=== PATIENT | female | born 1975 | race African-American/Black ===

== ENCOUNTER 2020-07-20 15:57 | Emergency (ER) | payer BC ==
[~2020-07-20] VITALS: Ht 170.2 cm; Wt 79.5 kg
[2020-07-20 18:38] LABS: BASO % 1 % (0-3); EOS # 0.1 x10^3/uL (0.0-0.7); EOS % 1 % (0-3); HEMATOCRIT 38.7 % (36.0-47.0); HEMOGLOBIN 13.2 g/dL (12.0-15.5); LYMPH # 2.1 x10^3/uL (1.0-4.8); LYMPH % 31 % (24-48); MEAN CORPUSCULAR HEMOGLOBIN 32 pg (25-35); MEAN CORPUSCULAR HGB CONC 34 g/dL (31-37); MEAN CORPUSCULAR VOLUME 93 fL (79-100); MONO # 0.2 x10^3/uL (0.0-1.1); MONO % 3 % (0-9); NEUT # 4.2 x10^3/uL (1.8-7.7); NEUT % 64 % (31-73); PLATELET COUNT 211 x10^3/uL (140-400); RED BLOOD COUNT 4.18 x10^6/uL (3.50-5.40); RED CELL DISTRIBUTION WIDTH 12.8 % (11.5-14.5); WHITE BLOOD COUNT 6.6 x10^3/uL (4.0-11.0)
--- NOTE | 2020-07-20 18:38 | RAD ---
Exam: CT head INDICATION: Episodes of blurry vision bilateral lower extremity weakness TECHNIQUE: Sequential axial images through the head were obtained without the administration of IV contrast. Comparisons: None FINDINGS: There is a 4 mm hyperdense focus within the left frontal lobe periventricular white matter series 2 image 14. There is no midline shift or sulcal effacement. No acute vascular territory infarction is identified. Pink-white distinction is preserved. The ventricular system is within normal limits without compression hydrocephalus. The basal cisterns are well maintained. The visualized portions of the paranasal sinuses and mastoid air cells are well-pneumatized. No acute fractures. IMPRESSION: A 4 mm hyperdense focus in the periventricular white matter of the left frontal lobe. This is nonspecific differential considerations include small calcified lesion versus small hemorrhage. Recommend MRI of the brain with contrast for further evaluation. Exposure: One or more of the following in the visualized dose reduction techniques were utilized for this examination: 1. Automated exposure control 2. Adjustment of the MA and/or KV according to patient size Use of iterative of reconstructive technique FOR INTERNAL CODING PURPOSES Critical result: Findings discussed with MIRIAM GREER at 07/20/2020 6:30 PM. RESULT CODE: (C) Electronically signed by: Sai Lacy MD (07/20/2020 6:32 PM) [facility]
[2020-07-20 19:28] LABS: CALCIUM 9.5 mg/dL (8.5-10.1); CREATININE 0.8 mg/dL (0.6-1.0); GFR 94.7; POTASSIUM 4.2 mmol/L (3.5-5.1)
[2020-07-20 19:35] LABS: ALBUMIN 3.7 g/dL (3.4-5.0); ALBUMIN/GLOBULIN RATIO 1.2 (1.0-1.7); TOTAL BILIRUBIN 0.1 mg/dL (0.2-1.0); TOTAL PROTEIN 6.8 g/dL (6.4-8.2)
[2020-07-20 20:20] VITALS: BP 114/67
--- NOTE | 2020-07-20 20:27 | ED.ADGEN ---
Past Medical History Past Medical History: Seizure Additional Past Medical Histor: back pain Past Surgical History: Other Additional Past Surgical Histo: BREAST REDUCTION Smoking Status: Current Every Day Smoker Alcohol Use: Occasionally General Adult EDM: Chief Complaint: SEIZURE HPI: HPI: Patient is a 44 year old AA female who presents emergency department with concerns of some episodes of blurred vision and having the sensation of her legs giving out. Patient states that on Friday she experienced a short episode of blurred vision and weakness in her legs. She states that the symptoms quickly resolved on their own. She states that she had been normal since Friday and was able to work yesterday but then today she was at the [employer] playing slots when she stood up and realized that her right leg was feeling weak and felt like it was going to give out on her. She noticed that she was also experiencing some blurred vision at that time. Patient states she has been taking opiate pain medications for chronic back pain. She is supposed to see a specialist tomorrow about the problems she has been having with her back and her hips. She denies any saddle anesthesia or loss of bowel/bladder control. She denies any headache, nausea, vomiting, diarrhea, abdominal pain, diaphoresis, chest pain, shortness of breath, body aches, fatigue, fever, or sore throat. She denies any numbness, tingling, weakness, or visual auras. Patient states that when both of these episodes happened she felt like her heart began to race. Patient reports a history of seizures, she takes Keppra and Lamictal, she denies missing any doses of her seizure medications recently. She denies any pain at this time. Review of Systems: Review of Systems: Complete ROS is negative unless otherwise noted in HPI. Allergies: Allergies: Allergies Coded Allergies Type Severity Reaction Last Updated Verified No Known Drug Allergies 07/20/20 No Physical Exam: PE: See Above Constitutional: Well developed, well nourished, no acute distress, non-toxic appearance. [] HENT: Normocephalic, atraumatic, bilateral external ears normal, oropharynx moist, no oral exudates, nose normal. [] Eyes: PERRLA, EOMI, conjunctiva normal, no discharge. [] Neck: Normal range of motion, no tenderness, supple, no stridor. [] Cardiovascular:Heart rate regular rhythm, no murmur [] Lungs & Thorax: Respirations even and unlabored, no retractions, no respiratory distress Abdomen: soft, no tenderness, no masses, no pulsatile masses. [] Skin: Warm, dry, no erythema, no rash. [] Back: No tenderness, no CVA tenderness. [] Extremities: No cyanosis, no clubbing, ROM intact, no edema. [] Neurologic: Alert and oriented X 3, normal motor function, normal sensory function, no focal deficits noted. [] Psychologic: Affect normal, judgement normal, mood normal. [] Current Patient Data: Labs: Laboratory Tests Test 07/20/20 16:59 07/20/20 17:40 07/20/20 19:10 POC Urine HCG, Qualitative Hcg negative (Negative) White Blood Count 6.6 x10^3/uL (4.0-11.0) Red Blood Count 4.18 x10^6/uL (3.50-5.40) Hemoglobin 13.2 g/dL (12.0-15.5) Hematocrit 38.7 % (36.0-47.0) Mean Corpuscular Volume 93 fL (79-100) Mean Corpuscular Hemoglobin 32 pg (25-35) Mean Corpuscular Hemoglobin Concent 34 g/dL (31-37) Red Cell Distribution Width 12.8 % (11.5-14.5) Platelet Count 211 x10^3/uL (140-400) Neutrophils (%) (Auto) 64 % (31-73) Lymphocytes (%) (Auto) 31 % (24-48) Monocytes (%) (Auto) 3 % (0-9) Eosinophils (%) (Auto) 1 % (0-3) Basophils (%) (Auto) 1 % (0-3) Neutrophils # (Auto) 4.2 x10^3/uL (1.8-7.7) Lymphocytes # (Auto) 2.1 x10^3/uL (1.0-4.8) Monocytes # (Auto) 0.2 x10^3/uL (0.0-1.1) Eosinophils # (Auto) 0.1 x10^3/uL (0.0-0.7) Basophils # (Auto) 0.0 x10^3/uL (0.0-0.2) Sodium Level 138 mmol/L (136-145) Potassium Level 4.2 mmol/L (3.5-5.1) Chloride Level 104 mmol/L (98-107) Carbon Dioxide Level 27 mmol/L (21-32) Anion Gap 7 (6-14) Blood Urea Nitrogen 9 mg/dL (7-20) Creatinine 0.8 mg/dL (0.6-1.0) Estimated GFR (Cockcroft-Gault) 94.7 BUN/Creatinine Ratio 11 (6-20) Glucose Level 91 mg/dL (70-99) Calcium Level 9.5 mg/dL (8.5-10.1) Total Bilirubin 0.1 mg/dL (0.2-1.0) L Aspartate Amino Transferase (AST) 18 U/L (15-37) Alanine Aminotransferase (ALT) 23 U/L (14-59) Alkaline Phosphatase 68 U/L (46-116) C-Reactive Protein, Quantitative 0.9 mg/L (0-3.3) Total Protein 6.8 g/dL (6.4-8.2) Albumin 3.7 g/dL (3.4-5.0) Albumin/Globulin Ratio 1.2 (1.0-1.7) Laboratory Tests 07/20/20 17:40 Laboratory Tests 07/20/20 19:10 Vital Signs: Vital Signs Date Time Temp Pulse Resp B/P (MAP) Pulse Ox O2 Delivery O2 Flow Rate FiO2 07/20/20 18:04 98.7 76 24 100 98.7 07/20/20 16:56 132/76 (94) Room Air EKG: EKG: [] Heart Score: Risk Factors: Risk Factors: DM, Current or recent (<one month) smoker, HTN, HLP, family history of CAD, obesity. Risk Scores: Score 0 - 3: 2.5% MACE over next 6 weeks - Discharge Home Score 4 - 6: 20.3% MACE over next 6 weeks - Admit for Clinical Observation Score 7 - 10: 72.7% MACE over next 6 weeks - Early Invasive Strategies Radiology/Procedures: Radiology/Procedures: PROCEDURE: CT HEAD WO CONTRAST Exam: CT head INDICATION: Episodes of blurry vision bilateral lower extremity weakness TECHNIQUE: Sequential axial images through the head were obtained without the administration of IV contrast. Comparisons: None FINDINGS: There is a 4 mm hyperdense focus within the left frontal lobe periventricular white matter series 2 image 14. There is no midline shift or sulcal effacement. No acute vascular territory infarction is identified. Pink-white distinction is preserved. The ventricular system is within normal limits without compression hydrocephalus. The basal cisterns are well maintained. The visualized portions of the paranasal sinuses and mastoid air cells are well-pneumatized. No acute fractures. IMPRESSION: A 4 mm hyperdense focus in the periventricular white matter of the left frontal lobe. This is nonspecific differential considerations include small calcified lesion versus small hemorrhage. Recommend MRI of the brain with contrast for further evaluation. [] Course & Med Decision Making: Course & Med Decision Making Pertinent Labs and Imaging studies reviewed. (See chart for details) 44-year-old female presented to the emergency department with complaints of 2 episodes of blurred vision and weakness in her lower extremities. Work-up included labs and a CT scan. CBC was unremarkable; CMP was unremarkable, C-reactive protein was not elevated, no concerns for arteritis; urine test is negative. 183-I received a call from the radiologist about the patient's CT scan. He recommended an MRI for further evaluation of a suspicious area in the left frontal lobe. 183-I spoke with Fatou HILL with Dr. Goldman's group advised of abnormal CT finding, she will have Dr. Goldman reviewed the scan. 184-per Fatou include Dr. Goldman who has reviewed the CT scan, the mentioned area by the radiologist appears to be scarring or calcification, he recommends an outpatient MRI. 185-I spoke with Dr. Yung about the patient. Dr. Yung recommends that the patient follows up with her neurologist for outpatient MRI, he also recommends patient has her IOP's measured and a vision exam through ophthalmology. Per Dr. Yung if the patient's CRP is not elevated there is no concern for arteritis patient is appropriate for outpatient follow-up. I discussed all the results with the patient and encouraged her to follow-up with her neurologist for outpatient MRI, I recommended that she has a visual exam with her intraocular pressures tested. I encouraged her to follow-up with her specialist about her back and hips tomorrow as I believe that the decreased sensation in her legs is likely due to her chronic disc problem. Patient's vital signs were stable in the emergency department. Patient verbalized an understanding of home care, medications, follow-up, and return to ED instructions and was in agreement with the plan of care. []I have reviewed the PA/PSYCHIATRIC NURSING ASSISTANT's note and Plan of Care. I was available for consultation as needed during the patient's visit in the emergency department. I agree with the clinical impression, plans and disposition. Jammieon Disclaimer: Dragon Disclaimer: This electronic medical record was generated, in whole or in part, using a voice recognition dictation system. Departure Departure Impression: Primary Impression: H/O blurred vision Additional Impressions: Lumbar radiculopathy, right Abnormal CT of the head Disposition: DC HOME SELF CARE/HOMELESS Condition: STABLE Referrals: UNKNOWN PCP NAME (PCP) Patient Instructions: Eye - Blurred Vision, Radicular Pain Additional Instructions: Follow-up with the specialist about your hip and back pain tomorrow as planned. Call your neurologist in the morning and advised them that you were seen in the emergency room at [facility] today. CT of your head today revealed a 4 mm hyperdense focal area in the periovarian ventricular white matter of the left frontal lobe. It is recommended that you have an outpatient MRI to further evaluate this area. I also recommend that you follow-up with an eye doctor for a complete eye exam. Return to the emergency room if your symptoms worsen or fever develops. Problem Qualifiers MIRIAM GREER APRN Jul 20, 2020 20:27 MO JOVEL MD Jul 20, 2020 21:15
== END 2020-07-20 20:38 | disposition home or self-care (01) ==
LOC: ER 15:57
DX: H53.8 Other visual disturbances (principal); M54.16 Radiculopathy, lumbar region; R93.0 Abnormal findings on diagnostic imaging of skull and head, not elsewhere classified; G89.29 Other chronic pain; F17.200 Nicotine dependence, unspecified, uncomplicated
CPT/HCPCS: 36415; 70450; 80053; 81025; 85025; 86140; 99285-25